=== PATIENT | female | born 1990 | race Caucasian/White ===

== ENCOUNTER → 2021-07-28 07:54 | Outpatient (CLI) | payer BC, SELFPAY ==
--- NOTE | ~2021-07-28 | US_ITS ---
EXAMINATION: US thyroid DATE: 07/28/2021 08:14 INDICATION: Nontoxic goiter. TECHNIQUE: Multiple ultrasound images of the thyroid were obtained. COMPARISON: None. FINDINGS: The right thyroid lobe measures 3.6 x 1.0 x 1.6 cm. The left thyroid lobe measures 3.2 x 1.1 x 1.4 c m. There is normal echotexture and echogenicity throughout the thyroid gland. No discrete nodules id entified. Normal vascular flow is present. IMPRESSION: 1. Normal thyroid. Reviewed, dictated and finalized at location A. IMPRESSION: 1. Normal thyroid.
== END ==
PROVIDERS: Visit Provider Internal Medicine Endocrinology, Diabetes & Metabolism
DX: E04.9 Nontoxic goiter, unspecified (principal)
CPT/HCPCS: 76536